=== PATIENT | male | born 1955 | race Two or more races ===

== ENCOUNTER 2019-12-07 12:01 | Emergency (ER) | payer OTHER ==
[~2019-12-07] VITALS: Ht 170.2 cm; Wt 83.9 kg
--- NOTE | 2019-12-07 12:10 | NUR ---
Dr Villalba at the bedside for MSE.
--- NOTE | 2019-12-07 12:19 | NUR ---
Patient discharged to home in stable condition. Written and verbal after care instructions given. Patient verbalizes understanding of instructions. Stressed follow up or return to ER for worsening s/s.
[2019-12-07 12:20] VITALS: BP 140/82
== END 2019-12-07 12:20 | disposition home or self-care (01) ==
LOC: ER 12:03
DX: R19.7 Diarrhea, unspecified (principal); R03.0 Elevated blood-pressure reading, without diagnosis of hypertension
CPT/HCPCS: A4663